=== PATIENT | male | born 1990 | race Caucasian/White ===

== ENCOUNTER → 2023-06-04 06:40 | Outpatient (REF) | payer OTHER, SELFPAY | LOC: HWRAD 06:40 | PROVIDERS: ATTENDING PHYSICIAN Family Medicine | DX: R06.02 Shortness of breath (principal); Z01.89 Encounter for other specified special examinations | CPT/HCPCS: 71046; 93005 ==

== ENCOUNTER → 2023-06-16 08:42 | Outpatient (REF) | payer OTHER, SELFPAY | LOC: RCS 08:42 | PROVIDERS: ATTENDING PHYSICIAN Family Medicine | DX: I49.9 Cardiac arrhythmia, unspecified (principal) | CPT/HCPCS: 93225; 93226 ==

== ENCOUNTER → 2023-06-21 08:09 | Outpatient (REF) | payer OTHER, SELFPAY | LOC: HWRAD 08:09 | PROVIDERS: ATTENDING PHYSICIAN Family Medicine | DX: R10.12 Left upper quadrant pain (principal) | CPT/HCPCS: 76700 ==

== ENCOUNTER → 2023-07-04 07:29 | Outpatient (REF) | payer OTHER, SELFPAY | LOC: PAVMRI 07:29 | PROVIDERS: ATTENDING PHYSICIAN Surgery; FAMILY PHYSICIAN Family Medicine | DX: K80.20 Calculus of gallbladder without cholecystitis without obstruction (principal); K83.8 Other specified diseases of biliary tract | CPT/HCPCS: 74181 ==

== ENCOUNTER → 2023-08-07 07:25 | Outpatient (REF) | payer OTHER, SELFPAY | LOC: DHCBC HW 07:25 | PROVIDERS: ATTENDING PHYSICIAN Internal Medicine Cardiovascular Disease; FAMILY PHYSICIAN Family Medicine | DX: I49.9 Cardiac arrhythmia, unspecified (principal); R06.09 Other forms of dyspnea | CPT/HCPCS: 93306 ==

== ENCOUNTER 2023-09-19 06:07 | Day surgery (SDC) | payer OTHER, SELFPAY ==
[2023-09-19] VITALS (9 sets, daily range): BP systolic 121–141; BP diastolic 68–82; BMI 32.8
[2023-09-19] MEDS: NORMOSOL-R 1000 IV (07:06)
[2023-09-19] MEDS: TYLENOL 1000 MG PO (07:06)
[2023-09-19] MEDS: ZOFRAN 4 MG IV (09:20)
[2023-09-19] MEDS: ROXICODONE 5 MG PO (10:38)
== END 2023-09-19 11:14 | disposition home or self-care (01) ==
LOC: SDS 06:07
PROVIDERS: ATTENDING PHYSICIAN Surgery
DX: K80.10 Calculus of gallbladder with chronic cholecystitis without obstruction (principal)
CPT/HCPCS: 47563; 88304; 74300; 76000

== ENCOUNTER → 2025-02-13 06:43 | Outpatient (REF) | payer BC, SELFPAY | LOC: RAD 06:43 | PROVIDERS: ATTENDING PHYSICIAN Nurse Practitioner Family | DX: J02.9 Acute pharyngitis, unspecified (principal) | CPT/HCPCS: 70491; Q9967 ==